=== PATIENT | female | born 1960 | race Caucasian/White ===

== ENCOUNTER 2017-01-26 19:10 | Emergency (ER) | payer OTHER ==
[~2017-01-26] VITALS: Ht 160 cm; Wt 79.1 kg
[2017-01-26 20:05] LABS: MCH 30.2 PG (29.0-34.0); MCHC 34.6 G/DL (30.0-36.0); MCV 87.2 FL (83-99); MEAN PLAT.VOLUME 10.9 uM^3 (9.5-12.4); PLATELET COUNT 217 K/uL (156-360); WHITE BLOOD COUNT 13.4 K/uL (4.1-10.2)
[2017-01-26] MEDS ORDERED: HURRICAINE SPRA60 ML TP (20:08)
[2017-01-26 20:16] LABS: CHLORIDE 107 mEq/L (99-109); POTASSIUM 4.2 mEq/L (3.7-5.4); SODIUM 142 mEq/L (136-147)
[2017-01-26 20:18] LABS: GLUCOSE 106 mg/dL (70-99)
[2017-01-26 20:19] LABS: ANION GAP 11 MEQ/L (2-14)
[2017-01-26 20:22] LABS: GFR ESTIMATE (CALCULATED) > 59 mL/min/
[2017-01-26 20:23] LABS: UREA NITROGEN (BUN) 22 mg/dL (9-23)
[2017-01-26 20:28] LABS: TROP-I INTERPRETATION NEGATIVE; TROPONIN-I < 0.01 ng/mL (0.0-0.30)
[2017-01-26 21:08] VITALS: BP 115/71
== END 2017-01-26 21:10 | disposition home or self-care (01) ==
LOC: EME 19:10
DX: R07.0 Pain in throat (principal); R09.89 Other specified symptoms and signs involving the circulatory and respiratory systems; Z98.890 Other specified postprocedural states
CPT/HCPCS: 71020; 80048; 84484; 85027; 93005; 99281; 99283